=== PATIENT | female | born 1950 | race American Indian/Alaskan Native ===

== ENCOUNTER 2019-09-23 21:05 | Emergency (ER) | payer MEDICARE, OTHER ==
[2019-09-23] MEDS ORDERED: ASPIRIN 325 MG TAB PO ONE (21:26)
--- NOTE | 2019-09-23 21:27 | Event Note ---
ED Screening Note Date of service: 09/23/19 Time: 21:22 ED Screening Note: This is a 69 y.o. F. that presents to the ER with laceration to left parietal scalp and chest pain. Patient states she fell off her bed and hit her head on the night stand. PMH DM2, HLD, and HLD. Fall unwitnessed. This initial assessment/diagnostic orders/clinical plan/treatment(s) is/are subject to change based on patients health status, clinical progression and re- assessment by fellow clinical providers in the ED. Further treatment and workup at subsequent clinical providers discretion. Patient/guardian urged not to elope from the ED as their condition may be serious if not clinically assessed and managed. Initial orders include: Labs EKG CXR CT of head
[2019-09-23 21:41] LABS: Hematocrit 41.2 % (30.3-42.9); Hemoglobin 13.6 gm/dl (10.1-14.3); Mean Corpuscular HGB Conc 33 % (30-34); Mean Corpuscular Volume 85 fl (79-97); Platelet Count 241 K/mm3 (140-440); Red Blood Count 4.88 M/mm3 (3.65-5.03); Red Cell Distribution Width 13.3 % (13.2-15.2)
--- NOTE | 2019-09-23 21:56 | XRay Report ---
CHEST 1 VIEW 09/23/2019 9:39 PM INDICATION / CLINICAL INFORMATION: Chest Pain. COMPARISON: Chest x-ray 03/04/2019 FINDINGS: SUPPORT DEVICES: None. HEART / MEDIASTINUM: No significant abnormality. LUNGS / PLEURA: No significant pulmonary or pleural abnormality. No pneumothorax. ADDITIONAL FINDINGS: No significant additional findings. IMPRESSION: 1. No acute findings. Signer Name: Juliocesar Booth MD Signed: 09/23/2019 9:51 PM Workstation Name: [id number]
[2019-09-23 22:03] LABS: BUN/Creatinine Ratio 23; Blood Urea Nitrogen 18 mg/dL (7-17); Calcium 9.7 mg/dL (8.4-10.2); Hemolysis Index 7
--- NOTE | 2019-09-23 22:38 | Cat Scan Report ---
CT HEAD WITHOUT CONTRAST INDICATION: laceration to scalp, fall TECHNIQUE: Axial slices were obtained through the head. Coronal and sagittal reformatted images were obtained. COMPARISON: None available. FINDINGS: There is no intracranial hemorrhage or extra-axial fluid collection. Ventricles, basilar cisterns, an d sulci appear within normal limits for age. There is no mass lesion or midline shift. No acute ernesto torial infarct is identified. Bone windows demonstrate no acute osseous abnormality. Paranasal sinuses and mastoid air cells appear clear. Left posterior scalp hematoma is noted. TECHNIQUE: All CT scans at this facility use dose modulation, iterative reconstruction, automated ex posure control, weight based dosing, when appropriate, to reduce radiation dose to as low as reasonab ly achievable. IMPRESSION: 1. No acute intracranial abnormality. Signer Name: Hernan Schaffer MD Signed: 09/23/2019 10:34 PM Workstation Name: [id number]
[2019-09-23 22:54] LABS: Total Cells Counted 100
[2019-09-23 22:55] LABS: Basophils % (Manual) 0 % (0.0-1.8); Platelet Estimate Consistent w Auto; RBC Morphology Normal
[2019-09-23] MEDS ORDERED: TETANUS,DIPH,PERTUSS(ACELL) VACCINE 0.5 ML SYRINGE IM ONE (22:56)
--- NOTE | 2019-09-23 22:59 | Emergency Department Report ---
HPI - General Chief Complaint: Chest Pain Time Seen by Provider: 09/23/19 21:22 - HPI HPI: 69-year-old -[place] female presents to the emergency department with complaint of hitting her head and a possible head laceration that occurred when she fell out of bed accidentally just prior to presentation. She says that her that is very high and she lost her balance and thinks that she hit her head on a side table. Unknown loss of consciousness but if she did lose consciousness she says it was for "about 1 second if at all." Patient and her say that there was a large amount of bleeding from her head but that has since stopped with holding pressure. She currently has some mild head pain. She denies any vision change, slurred speech or any neurological deficits. The patient currently denies any chest pain but apparently had some when she arrived to triage. She says "I think it was due to the stress and excitement of the fall." She did not take anything for her symptoms prior to presentation. She has a past medical history of diabetes, hypertension, high cholesterol and previous cardiac ablation for SVT. Her primary care physician is max Solano and her collection analyst is Dr. Hughes. ED Past Medical Hx - Past Medical History Previous Medical History?: Yes Hx Hypertension: Yes Hx Diabetes: Yes Hx Asthma: No Additional medical history: High Cholesterol - Surgical History Past Surgical History?: Yes Additional Surgical History: Cardiac Ablation - Social History Smoking Status: Never Smoker Substance Use Type: None - Medications Home Medications: Home Medications Medication Instructions Recorded Confirmed Last Taken Type Cholecalciferol Vit D3 [Vitamin D3 1,000 unit PO QDAY 03/04/18 03/04/18 Unknown History 1,000 UNIT TAB] Cyanocobalamin [Vitamin B-12] 1,000 mcg PO DAILY 03/04/18 03/04/18 Unknown History dilTIAZem CD [Cardizem CD] 120 mg PO QDAY #30 capsule 03/05/18 Unknown Rx metFORMIN [Glucophage] 500 mg PO BID #60 tablet 03/05/18 Unknown Rx ED Review of Systems ROS: Stated complaint: FALL INJURY TO HEAD CHEST PAIN Other details as noted in HPI Comment: All other systems reviewed and negative Constitutional: denies: chills, fever Eyes: denies: eye pain, vision change ENT: denies: ear pain, throat pain Respiratory: denies: cough, shortness of breath Cardiovascular: chest pain. denies: palpitations Gastrointestinal: denies: abdominal pain, vomiting Genitourinary: denies: dysuria, discharge Musculoskeletal: denies: back pain, arthralgia Skin: other (scalp laceration). denies: rash Neurological: headache. denies: weakness Physical Exam - Physical Exam Vital Signs: Vital Signs 09/23/19 21:20 Temperature 98.1 F Pulse Rate 119 H Respiratory 18 Rate Blood Pressure 192/92 O2 Sat by Pulse 99 Oximetry Physical Exam: GENERAL: The patient is well-developed well-nourished. HEENT: Normocephalic. Patient has moist mucous membranes. EYES: Extraocular motions are intact. Pupils equal and reactive to light bilaterally. NECK: Supple. Trachea is midline. CHEST/LUNGS: Clear to auscultation. There is no respiratory distress noted. HEART/CARDIOVASCULAR: Regular. There is no tachycardia. There is no murmur. ABDOMEN: Abdomen is soft, nontender. Patient has normal bowel sounds. There is no abdominal distention. SKIN:Skin is warm and dry. There is a 1 cm linear superficial laceration to the superior posterior scalp. No current bleeding. NEURO: The patient is awake, alert, and oriented. The patient is cooperative. The patient has no focal neurologic deficits. Normal speech. Cranial nerves II through XII grossly intact. No facial asymmetry. MUSCULOSKELETAL: There is no tenderness or deformity. There is no evidence of acute injury. ED Course Vital Signs 09/23/19 21:20 Temperature 98.1 F Pulse Rate 119 H Respiratory 18 Rate Blood Pressure 192/92 O2 Sat by Pulse 99 Oximetry - Laceration /Wound Repair Head Wound Location: head (left posterior scalp) Wound Length (cm): 1 Wound's Depth, Shape: superficial, linear Wound Explored: no foreign body removed Number of Sutures: 2 (mariela) Layer Closure?: No ED Medical Decision Making - Lab Data Result diagrams: 09/23/19 21:32 09/23/19 21:32 - EKG Data -: EKG Interpreted by Sc EKG shows normal: sinus rhythm, axis, intervals, QRS complexes, ST-T waves Rate: tachycardia (116 bpm) - EKG Data When compared to previous EKG there are: no significant change Interpretation: unchanged when compared t (03/04/18) - Radiology Data Radiology results: report reviewed, image reviewed interpreted by me: Chest x-ray does not show any pleural effusions, pneumonia, pneumothorax, focal consolidation, or any other acute process. CT HEAD WITHOUT CONTRAST INDICATION: laceration to scalp, fall TECHNIQUE: Axial slices were obtained through the head. Coronal and sagittal reformatted images were obtained. COMPARISON: None available. FINDINGS: There is no intracranial hemorrhage or extra-axial fluid collection. Ventricles, basilar cisterns, and sulci appear within normal limits for age. There is no mass lesion or midline shift. No acute territorial infarct is identified. Bone windows demonstrate no acute osseous abnormality. Paranasal sinuses and mastoid air cells appear clear. Left posterior scalp hematoma is noted. TECHNIQUE: All CT scans at this facility use dose modulation, iterative reconstruction, automated exposure control, weight based dosing, when appropriate, to reduce radiation dose to as low as reasonably achievable. IMPRESSION: 1. No acute intracranial abnormality. - Medical Decision Making This patient presents to the emergency department after falling out of bed and hitting her head on a nightstand. This caused a 1 cm laceration to the superior posterior scalp. A CT scan of the head was done that does not show any bleed, shift, mass, ischemia, skull fracture, or any other acute process. The laceration was closed with 2 mariela. The patient had also complained, per triage, of having some chest pain when this initially happened. However the chest pain resolved while in the emergency department and she has no complaints of any chest pain at the time of my examination. An EKG was done that did not show any ST elevation ME or dysrhythmia. Her labs were unremarkable according CBC, metabolic panel and troponin. Chest x-ray did not show any pleural effusions, pneumonia, focal consolidation, pneumothorax, or any other acute process. The patient is feeling improved and appears safe for discharge home at this time. She has good follow-up with both primary care and cardiology. She understands the mariela will need to be removed in about 7 days. She was seen ambulatory in the emergency department and both appears and feels stable. She will return to the ER with any worsening of her symptoms or any acute distress. - Differential Diagnosis skull fracture, brain bleed, scalp laceration, concussion, costochondritis, Critical Care Time: No Critical care attestation.: If time is entered above; I have spent that time in minutes in the direct care of this critically ill patient, excluding procedure time. ED Disposition Clinical Impression: Fall Qualifiers: Encounter type: initial encounter Qualified Code(s): W19.XXXA - Unspecified fall, initial encounter Scalp laceration Qualifiers: Encounter type: initial encounter Qualified Code(s): S01.01XA - Laceration without foreign body of scalp, initial encounter Chest pain Qualifiers: Chest pain type: unspecified Qualified Code(s): R07.9 - Chest pain, unspecified Disposition: TO HOME OR SELFCARE Is pt being admited?: No Condition: Stable Instructions: Chest Pain (ED), Laceration (ED), Minor Head Injury (ED), Staple Care (ED), Fall Prevention (ED) Additional Instructions: Please follow up with your primary care physician and collection analyst in the next few days. Return to the emergency department immediately with any return of your chest pain, or with any signs/symptoms of infection including development of fever, increased swelling, surrounding redness, discharge of pus, or return with any acute distress. The mariela will need to be removed in about 7 days and can be done so at your primary care physician's office, any urgent care, or back in the emergency department. Referrals: LAUREN GODFREY MD [Primary Care Provider] - 2-3 Days DAYO HUGHES MD [Staff Physician] - 2-3 Days Time of Disposition: 23:38
[2019-09-23] MEDS ORDERED: HYDROcodone/ACETAMINOPHEN 5-325 MG TAB PO ONE (23:31)
[2019-09-24 00:20] VITALS: BP 123/69
== END 2019-09-23 23:55 | disposition home or self-care (01) ==
LOC: ED 21:05
DX: S01.01XA Laceration without foreign body of scalp, initial encounter (principal); R07.89 Other chest pain; I10 Essential (primary) hypertension; E11.9 Type 2 diabetes mellitus without complications; E78.00 Pure hypercholesterolemia, unspecified; Z79.899 Other long term (current) drug therapy; W18.39XA Other fall on same level, initial encounter; Y93.89 Activity, other specified; Y92.89 Other specified places as the place of occurrence of the external cause; Y99.8 Other external cause status
CPT/HCPCS: 36415; 70450; 71045; 80048; 84484; 85007; 85025; 90471; 90715; 93005; 93010

== ENCOUNTER 2020-12-27 22:58 | Observation (INO) | payer MEDICARE, OTHER ==
[2020-12-28] MEDS ORDERED: ASPIRIN 325 MG TAB PO ONE (00:41)
--- NOTE | 2020-12-28 00:43 | Emergency Department Report ---
ED Chest Pain HPI - General Chief Complaint: Headache Stated Complaint: CHEST PAIN/HIGH BLOOD PRESSURE PUI?: No Time Seen by Provider: 12/28/20 00:39 Source: patient Mode of arrival: Ambulatory Limitations: No Limitations - History of Present Illness Initial Comments: Patient is a 70-year-old female evidence emergency room with complaints of chest pain, high blood pressure and headache. Patient states her symptoms started 5 d ays ago. Patient states the symptoms are unchanged. Patient states that the headache is a tingling sensation and is generalized. Patient denies pain over the temporal region. Patient states she feels like she has extra pressure in her head from her blood pressure. Patient states she is having bilateral chest pressure. Patient states the chest pressure is a 3 out of 10. Patient states the headache is a 5 out of 10. Patient states the chest pressure and headache are better with rest and worse with exertion. Patient denies recent travel. Patient denies recent international travel. Pat ient denies exposure to the novel coronavirus. Patient denies sick contacts. Patient denies fever and chills. Patient denies cough. Patient denies diarrhea. Patient denies coming in contact with anybody with symptoms of the novel coronavirus. MD Complaint: chest pain -: Sudden Onset: during rest Pain Location: substernal, left chest, right chest Pain Radiation: none Severity scale (0 -10): 3 Quality: pressure Consistency: constant Improves With: rest Worsens With: exertion, movement re: denies: nausea, vomting, diaphoresis, dyspnea, sense of impending doom Other Symptoms: denies: cough, fever, syncope, rash, acid taste in mouth, leg swelling, palpitations, burping Treatments Prior to Arrival: none Aspirin use within the Past 7 Days: (1) Yes - Related Data On Oral Contraceptives: No Home Medications Medication Instructions Recorded Confirmed Last Taken Cholecalciferol Vit D3 [Vitamin D3 1,000 unit PO QDAY 03/04/18 03/04/18 Unknown 1,000 UNIT TAB] Cyanocobalamin [Vitamin B-12] 1,000 mcg PO DAILY 03/04/18 03/04/18 Unknown Previous Rx's Medication Instructions Recorded Last Taken Type dilTIAZem CD [Cardizem CD] 120 mg PO QDAY #30 capsule 03/05/18 Unknown Rx metFORMIN [Glucophage] 500 mg PO BID #60 tablet 03/05/18 Unknown Rx Allergies Allergy/AdvReac Type Severity Reaction Status Date / Time No Known Allergies Allergy Unverified 03/31/15 16:57 Heart Score - HEART Score History: Moderately suspicious EKG: Non-specific Age: > 65 Risk factors: > 3 risk factors or hx of atherosclerotic disease Troponin: < normal limit HEART Score: 6 - EKG Read Time Time EKG Completed: 04:26 EKG Read Time: 04:27 ED Review of Systems ROS: Stated complaint: CHEST PAIN/HIGH BLOOD PRESSURE Other details as noted in HPI Constitutional: denies: chills, fever Eyes: denies: eye pain, eye discharge, vision change ENT: denies: ear pain, throat pain Respiratory: denies: cough, shortness of breath, wheezing Cardiovascular: as per HPI, chest pain. denies: palpitations Endocrine: no symptoms reported Gastrointestinal: denies: abdominal pain, nausea, diarrhea Genitourinary: denies: urgency, dysuria, discharge Musculoskeletal: denies: back pain, joint swelling, arthralgia Skin: denies: rash, lesions Neurological: headache. denies: weakness, paresthesias Psychiatric: denies: anxiety, depression Hematological/Lymphatic: denies: easy bleeding, easy bruising ED Past Medical Hx - Past Medical History Previous Medical History?: Yes Hx Hypertension: Yes Hx Diabetes: Yes Hx Asthma: No Additional medical history: High Cholesterol - Surgical History Past Surgical History?: Yes Additional Surgical History: Cardiac Ablation - Social History Smoking Status: Never Smoker Substance Use Type: None - Medications Home Medications: Home Medications Medication Instructions Recorded Confirmed Last Taken Type Cholecalciferol Vit D3 [Vitamin D3 1,000 unit PO QDAY 03/04/18 03/04/18 Unknown History 1,000 UNIT TAB] Cyanocobalamin [Vitamin B-12] 1,000 mcg PO DAILY 03/04/18 03/04/18 Unknown History dilTIAZem CD [Cardizem CD] 120 mg PO QDAY #30 capsule 03/05/18 Unknown Rx metFORMIN [Glucophage] 500 mg PO BID #60 tablet 03/05/18 Unknown Rx ED Physical Exam - General Limitations: No Limitations General appearance: alert, in no apparent distress - Head Head exam: Present: atraumatic, normocephalic - Eye Eye exam: Present: normal appearance - ENT ENT exam: Present: mucous membranes moist - Neck Neck exam: Present: normal inspection - Respiratory Respiratory exam: Present: normal lung sounds bilaterally. Absent: respiratory distress, chest wall tenderness - Cardiovascular Cardiovascular Exam: Present: regular rate, normal rhythm. Absent: systolic murmur, diastolic murmur, rubs, gallop - GI/Abdominal GI/Abdominal exam: Present: soft, normal bowel sounds - Extremities Exam Extremities exam: Present: normal inspection - Back Exam Back exam: Present: normal inspection - Neurological Exam Neurological exam: Present: alert, oriented X3 - Psychiatric Psychiatric exam: Present: normal affect, normal mood - Skin Skin exam: Present: warm, dry, intact, normal color. Absent: rash ED Course Vital Signs 12/27/20 12/28/20 12/28/20 23:18 00:53 00:54 Temperature 97.9 F Pulse Rate 124 H 86 82 Respiratory 18 12 16 Rate Blood Pressure 153/95 122/66 O2 Sat by Pulse 96 98 98 Oximetry 12/28/20 12/28/20 12/28/20 00:55 00:57 00:59 Temperature Pulse Rate 82 87 76 Respiratory 15 13 13 Rate Blood Pressure 122/66 122/66 122/66 O2 Sat by Pulse 98 98 98 Oximetry 12/28/20 12/28/20 12/28/20 01:01 01:03 01:05 Temperature Pulse Rate 86 87 86 Respiratory 13 17 18 Rate Blood Pressure 122/66 122/66 122/66 O2 Sat by Pulse 98 97 98 Oximetry 12/28/20 12/28/20 12/28/20 01:07 01:09 01:11 Temperature Pulse Rate 86 84 84 Respiratory 14 18 12 Rate Blood Pressure 122/66 122/66 122/66 O2 Sat by Pulse 97 97 97 Oximetry 12/28/20 12/28/20 12/28/20 01:13 01:15 01:17 Temperature Pulse Rate 87 87 86 Respiratory 16 11 L 16 Rate Blood Pressure 122/66 122/66 122/66 O2 Sat by Pulse 96 96 96 Oximetry 12/28/20 12/28/20 12/28/20 01:19 01:21 01:23 Temperature Pulse Rate 82 80 81 Respiratory 11 L 12 11 L Rate Blood Pressure 122/66 122/66 122/66 O2 Sat by Pulse 97 97 97 Oximetry 12/28/20 12/28/20 12/28/20 01:24 01:25 01:27 Temperature Pulse Rate 79 81 80 Respiratory 16 13 12 Rate Blood Pressure 126/66 126/66 126/66 O2 Sat by Pulse 96 96 96 Oximetry 12/28/20 12/28/20 12/28/20 01:29 01:31 01:33 Temperature Pulse Rate 86 76 82 Respiratory 13 10 L 15 Rate Blood Pressure 126/66 126/66 126/66 O2 Sat by Pulse 96 96 97 Oximetry 12/28/20 12/28/20 12/28/20 01:35 01:37 01:39 Temperature Pulse Rate 82 81 81 Respiratory 12 11 L 14 Rate Blood Pressure 126/66 126/66 126/66 O2 Sat by Pulse 97 96 95 Oximetry 12/28/20 12/28/20 12/28/20 01:41 01:43 01:45 Temperature Pulse Rate 77 76 80 Respiratory 13 19 15 Rate Blood Pressure 126/66 126/66 126/66 O2 Sat by Pulse 96 96 96 Oximetry 12/28/20 12/28/20 12/28/20 01:47 01:49 01:51 Temperature Pulse Rate 84 80 80 Respiratory 17 12 14 Rate Blood Pressure 126/66 126/66 126/66 O2 Sat by Pulse 96 95 96 Oximetry 12/28/20 12/28/20 12/28/20 02:09 02:11 02:13 Temperature Pulse Rate 79 80 77 Respiratory 12 14 18 Rate Blood Pressure O2 Sat by Pulse 97 96 95 Oximetry 12/28/20 12/28/20 12/28/20 02:15 02:17 02:19 Temperature Pulse Rate 81 79 77 Respiratory 17 12 13 Rate Blood Pressure O2 Sat by Pulse 96 96 95 Oximetry 12/28/20 12/28/20 12/28/20 02:21 02:23 02:25 Temperature Pulse Rate 81 80 78 Respiratory 11 L 20 15 Rate Blood Pressure O2 Sat by Pulse 96 96 96 Oximetry 12/28/20 12/28/20 12/28/20 02:27 02:29 02:31 Temperature Pulse Rate 80 84 80 Respiratory 17 20 12 Rate Blood Pressure O2 Sat by Pulse 96 95 96 Oximetry 12/28/20 12/28/20 12/28/20 02:33 02:35 02:37 Temperature Pulse Rate 84 75 77 Respiratory 17 14 11 L Rate Blood Pressure O2 Sat by Pulse 95 95 95 Oximetry 12/28/20 12/28/20 12/28/20 02:39 02:41 02:43 Temperature Pulse Rate 79 81 81 Respiratory 20 14 19 Rate Blood Pressure O2 Sat by Pulse 95 95 94 Oximetry 12/28/20 12/28/20 12/28/20 02:45 02:47 02:49 Temperature Pulse Rate 77 78 75 Respiratory 14 18 17 Rate Blood Pressure O2 Sat by Pulse 96 96 97 Oximetry 12/28/20 12/28/20 12/28/20 02:51 02:53 02:55 Temperature Pulse Rate 79 76 74 Respiratory 14 15 15 Rate Blood Pressure O2 Sat by Pulse 97 95 97 Oximetry 12/28/20 12/28/20 12/28/20 02:57 02:59 03:01 Temperature Pulse Rate 75 73 77 Respiratory 12 17 18 Rate Blood Pressure 106/55 106/55 116/69 O2 Sat by Pulse 94 95 97 Oximetry 12/28/20 12/28/20 12/28/20 03:03 03:05 03:06 Temperature Pulse Rate 72 87 77 Respiratory 14 14 14 Rate Blood Pressure 116/69 116/69 120/63 O2 Sat by Pulse 96 98 95 Oximetry 12/28/20 12/28/20 12/28/20 03:07 03:09 03:11 Temperature Pulse Rate 76 76 75 Respiratory 14 14 15 Rate Blood Pressure 120/63 120/63 112/64 O2 Sat by Pulse 94 94 94 Oximetry 12/28/20 12/28/20 12/28/20 03:13 03:15 03:17 Temperature Pulse Rate 76 75 77 Respiratory 20 13 16 Rate Blood Pressure 112/64 112/64 94/48 O2 Sat by Pulse 96 95 94 Oximetry 12/28/20 12/28/20 12/28/20 03:19 03:20 03:21 Temperature Pulse Rate 78 70 74 Respiratory 10 L 10 L 19 Rate Blood Pressure 94/48 109/62 109/62 O2 Sat by Pulse 95 97 96 Oximetry 12/28/20 12/28/20 12/28/20 03:23 03:25 03:27 Temperature Pulse Rate 79 77 77 Respiratory 16 15 14 Rate Blood Pressure 109/62 109/62 109/62 O2 Sat by Pulse 95 93 96 Oximetry 12/28/20 12/28/20 12/28/20 03:29 03:31 03:33 Temperature Pulse Rate 81 78 74 Respiratory 16 17 13 Rate Blood Pressure 109/62 109/62 109/62 O2 Sat by Pulse 96 99 97 Oximetry 12/28/20 12/28/20 12/28/20 03:35 03:37 03:39 Temperature Pulse Rate 76 77 80 Respiratory 16 8 L 10 L Rate Blood Pressure 109/62 109/62 109/62 O2 Sat by Pulse 95 96 96 Oximetry 12/28/20 12/28/20 12/28/20 03:41 03:43 03:45 Temperature Pulse Rate 102 H 98 H 90 Respiratory 16 16 22 Rate Blood Pressure 109/62 109/62 109/62 O2 Sat by Pulse 97 97 98 Oximetry 12/28/20 12/28/20 12/28/20 03:47 03:49 03:50 Temperature Pulse Rate 78 76 94 H Respiratory 14 17 17 Rate Blood Pressure 109/62 109/62 124/55 O2 Sat by Pulse 98 97 96 Oximetry 12/28/20 12/28/20 12/28/20 03:51 03:53 03:55 Temperature Pulse Rate 95 H 78 79 Respiratory 14 13 16 Rate Blood Pressure 124/55 124/55 124/55 O2 Sat by Pulse 97 97 98 Oximetry 12/28/20 12/28/20 12/28/20 03:57 03:59 04:01 Temperature Pulse Rate 95 H 95 H 92 H Respiratory 15 20 15 Rate Blood Pressure 124/55 124/55 124/55 O2 Sat by Pulse 98 98 97 Oximetry 12/28/20 12/28/20 12/28/20 04:03 04:05 04:07 Temperature Pulse Rate 90 92 H 81 Respiratory 13 12 17 Rate Blood Pressure 124/55 124/55 124/55 O2 Sat by Pulse 98 98 97 Oximetry 12/28/20 12/28/20 12/28/20 04:09 04:11 04:13 Temperature Pulse Rate 80 78 76 Respiratory 17 14 12 Rate Blood Pressure 124/55 124/55 124/55 O2 Sat by Pulse 97 98 97 Oximetry 12/28/20 12/28/20 12/28/20 04:15 04:16 04:23 Temperature Pulse Rate 79 78 68 Respiratory 10 L 13 11 L Rate Blood Pressure 124/55 124/55 124/55 O2 Sat by Pulse 97 98 Oximetry 12/28/20 12/28/20 12/28/20 04:25 04:27 04:29 Temperature Pulse Rate 73 72 77 Respiratory 13 16 14 Rate Blood Pressure 124/55 124/55 124/55 O2 Sat by Pulse 99 99 99 Oximetry 12/28/20 12/28/20 12/28/20 04:31 04:33 04:35 Temperature Pulse Rate 70 77 74 Respiratory 12 11 L 19 Rate Blood Pressure 124/55 124/55 124/55 O2 Sat by Pulse 98 98 97 Oximetry 12/28/20 12/28/20 12/28/20 04:37 04:39 04:41 Temperature Pulse Rate 74 77 76 Respiratory 14 16 17 Rate Blood Pressure 124/55 124/55 124/55 O2 Sat by Pulse 98 98 97 Oximetry 12/28/20 12/28/20 12/28/20 04:43 04:45 04:47 Temperature Pulse Rate 73 72 71 Respiratory 12 12 14 Rate Blood Pressure 124/55 124/55 124/55 O2 Sat by Pulse 97 96 97 Oximetry 12/28/20 12/28/20 12/28/20 04:49 04:50 04:51 Temperature Pulse Rate 70 78 75 Respiratory 14 13 12 Rate Blood Pressure 124/55 106/68 106/68 O2 Sat by Pulse 97 99 97 Oximetry 12/28/20 12/28/20 12/28/20 04:53 04:55 04:57 Temperature Pulse Rate 74 75 71 Respiratory 13 15 14 Rate Blood Pressure 106/68 106/68 106/68 O2 Sat by Pulse 97 96 95 Oximetry 12/28/20 12/28/20 12/28/20 04:59 05:01 05:03 Temperature Pulse Rate 69 71 70 Respiratory 19 13 10 L Rate Blood Pressure 106/68 106/68 106/68 O2 Sat by Pulse 96 96 97 Oximetry 12/28/20 12/28/20 12/28/20 05:05 05:07 05:09 Temperature Pulse Rate 69 72 74 Respiratory 16 19 18 Rate Blood Pressure 106/68 106/68 106/68 O2 Sat by Pulse 96 95 97 Oximetry 12/28/20 12/28/20 12/28/20 05:11 05:13 05:15 Temperature Pulse Rate 70 70 74 Respiratory 13 13 16 Rate Blood Pressure 106/68 106/68 106/68 O2 Sat by Pulse 95 96 96 Oximetry 12/28/20 12/28/20 12/28/20 05:17 05:19 05:20 Temperature Pulse Rate 68 73 70 Respiratory 17 17 18 Rate Blood Pressure 106/68 106/68 109/62 O2 Sat by Pulse 96 95 95 Oximetry 12/28/20 05:21 Temperature Pulse Rate 66 Respiratory 18 Rate Blood Pressure 109/62 O2 Sat by Pulse 96 Oximetry - Reevaluation(s) Reevaluation #1: I discussed all results with patient. I discussed plan of care with patient. Patient agrees with plan of care and admission. Patient to be admitted to the hospitalist service. 12/28/20 04:01 - Consultations Consultation #1: Hospitalist consulted for admission. Hospitalist to admit patient. 12/28/20 03:42 YAZMIN score - Yazmin Score Age > 65: (1) Yes Aspirin use within the Past 7 Days: (0) No 3 or more CAD Risk Factors: (0) No 2 or more Angina events in past 24 hrs: (0) No Known CAD with more than 50% Stenosis: (0) No Elevated Cardiac Markers: (0) No ST Deviation Greater than 0.5mm: (0) No YAZMIN Score: 1 ED Medical Decision Making - Lab Data Result diagrams: 12/28/20 04:21 12/28/20 04:21 - EKG Data -: EKG Interpreted by Me EKG shows normal: sinus rhythm, axis, intervals, QRS complexes, ST-T waves Rate: normal - Radiology Data Radiology results: report reviewed, image reviewed interpreted by me: Chest x-ray: No pneumonia, no pneumothorax, no foreign body, no osseous findings, no acute findings CT HEAD WITHOUT CONTRAST INDICATION / CLINICAL INFORMATION: Patient complains of headache and dizziness. TECHNIQUE: All CT scans at this location are performed using CT dose reduction for ALARA by means of automated exposure control. COMPARISON: 09/23/19. FINDINGS: HEMORRHAGE: None. EXTRA-AXIAL SPACES: Normal in size and morphology for the patient's age. VENTRICULAR SYSTEM: Normal in size and morphology for the patient's age. CEREBRAL PARENCHYMA: No significant abnormality. No acute territorial infarct. MIDLINE SHIFT / HERNIATION: None. CEREBELLUM / BRAINSTEM: No significant abnormality. ORBITS: Normal as visualized. SOFT TISSUES: No significant abnormality. SKULL: No significant abnormality. PARANASAL SINUSES / MASTOID AIR CELLS: Normal as visualized. ADDITIONAL FINDINGS: None. IMPRESSION: No acute abnormality or significant change. CHEST 1 VIEW 12/28/2020 12:37 AM INDICATION / CLINICAL INFORMATION: Chest Pain. COMPARISON: 09/23/19. FINDINGS: SUPPORT DEVICES: None. HEART / MEDIASTINUM: The heart size and pulmonary vasculature are normal. The aorta is normal in caliber. LUNGS / PLEURA: No significant pulmonary or pleural abnormality. No pneumothorax. ADDITIONAL FINDINGS: No significant additional findings. IMPRESSION: No acute abnormality or significant change. - Medical Decision Making Patient is a 70-year-old female who presents emergency room with complaints of chest pain, headache and dizziness. Patient states she feels her blood pressure. Patient had labs done which were essentially unremarkable. Patient had a chest x-ray done which was negative for acute findings. Patient had an EKG done which was negative for acute findings and normal ST. I personally reviewed the EKG and the chest x-ray. Patient also complained of dizziness and had a head CT done. Patient head CT was negative for acute findings. Patient admitted to the hospital service for further evaluation treatment and rule out ACS. Critical care time documented due to the multiple reassessments, prolonged time at the bedside, interpretation of diagnostics and labs. - Differential Diagnosis ACS, chest pain, headache, hypertension, CHF Critical Care Time: Yes Critical care time in (mins) excluding proc time.: 35 Critical care attestation.: If time is entered above; I have spent that time in minutes in the direct care of this critically ill patient, excluding procedure time. Critical Care Time: 35 minutes ED Disposition Clinical Impression: Dizziness Chest pain Qualifiers: Chest pain type: unspecified Qualified Code(s): R07.9 - Chest pain, unspecified Headache Qualifiers: Headache type: unspecified Headache chronicity pattern: acute headache Intractability: not intractable Qualified Code(s): R51.9 - Headache, unspecified Disposition: DC-09 OP ADMIT IP TO THIS HOSP Is pt being admited?: Yes Does the pt Need Aspirin: No Condition: Critical Time of Disposition: 04:35
--- NOTE | 2020-12-28 01:00 | XRay Report ---
CHEST 1 VIEW 12/28/2020 12:37 AM INDICATION / CLINICAL INFORMATION: Chest Pain. COMPARISON: 09/23/19. FINDINGS: SUPPORT DEVICES: None. HEART / MEDIASTINUM: The heart size and pulmonary vasculature are normal. The aorta is normal in ryan jaquan. LUNGS / PLEURA: No significant pulmonary or pleural abnormality. No pneumothorax. ADDITIONAL FINDINGS: No significant additional findings. IMPRESSION: No acute abnormality or significant change. Signer Name: Juan Evangelista MD Signed: 12/28/2020 12:56 AM Workstation Name: [id number]
[2020-12-28 01:10] LABS: Basophils # (Auto) 0.1 K/mm3 (0.0-0.1); Basophils % (Auto) 0.8 % (0.0-1.8); Eosinophils # (Auto) 0.1 K/mm3 (0.0-0.4); Eosinophils % (Auto) 0.7 % (0.0-4.3); Hematocrit 47.1 % (30.3-42.9); Hemoglobin 15.1 gm/dl (10.1-14.3); Mean Corpuscular HGB Conc 32 % (30-34); Mean Corpuscular Volume 84 fl (79-97); Monocytes # (Auto) 0.8 K/mm3 (0.0-0.8); Monocytes % (Auto) 6.3 % (0.0-7.3); Platelet Count 262 K/mm3 (140-440); Red Blood Count 5.63 M/mm3 (3.65-5.03); Red Cell Distribution Width 13.3 % (13.2-15.2)
[2020-12-28 01:19] LABS: INR 1.01 (0.87-1.13)
[2020-12-28 01:20] LABS: Partial Thromboplastin Time 23.3 Sec. (24.2-36.6)
[2020-12-28 01:52] LABS: Alanine Aminotransferase 28 units/L (7-56); Albumin 4.5 g/dL (3.9-5); BUN/Creatinine Ratio 21; Blood Urea Nitrogen 17 mg/dL (7-17); Calcium 10.2 mg/dL (8.4-10.2); Hemolysis Index 5
--- NOTE | 2020-12-28 02:33 | Cat Scan Report ---
CT HEAD WITHOUT CONTRAST INDICATION / CLINICAL INFORMATION: Patient complains of headache and dizziness. TECHNIQUE: All CT scans at this location are performed using CT dose reduction for ALARA by means of automated exposure control. COMPARISON: 09/23/19. FINDINGS: HEMORRHAGE: None. EXTRA-AXIAL SPACES: Normal in size and morphology for the patient's age. VENTRICULAR SYSTEM: Normal in size and morphology for the patient's age. CEREBRAL PARENCHYMA: No significant abnormality. No acute territorial infarct. MIDLINE SHIFT / HERNIATION: None. CEREBELLUM / BRAINSTEM: No significant abnormality. ORBITS: Normal as visualized. SOFT TISSUES: No significant abnormality. SKULL: No significant abnormality. PARANASAL SINUSES / MASTOID AIR CELLS: Normal as visualized. ADDITIONAL FINDINGS: None. IMPRESSION: No acute abnormality or significant change. Signer Name: Juan Evangelista MD Signed: 12/28/2020 2:29 AM Workstation Name: [id number]
--- NOTE | 2020-12-28 03:51 | History and Physical Report ---
History of Present Illness Date of examination: 12/28/20 Date of admission: 12/28/20 Chief complaint: chest pain History of present illness: Patient is a 70-year-old female evidence emergency room with complaints of chest pain, high blood pressure and headache. Patient states her symptoms started 5 days ago. Patient states the symptoms are unchanged. Patient states that the headache is a tingling sensation and is generalized. Patient denies pain over the temporal region. Patient states she feels like she has extra pressure in her head from her blood pressure. Patient states she is having bilateral chest pressure. Patient states the chest pressure is a 3 out of 10. Patient states the headache is a 5 out of 10. Patient states the chest pressure and headache are better with rest and worse with exertion. ED work-up WBC 12.5 and 13.7, hemoglobin 15.1 and 14.8, platelets 262 and 268, sodium 138 potassium 4.6 creatinine 0.8, serum glucose 194 and 151, hemoglobin A1c 8.9, troponin less than 0.01, triglyceride 202, 228, LDL [address] of the head no acute finding. Chest x-ray no acute abnormality or significant change. Patient seen in the ED at bedside patient is alert and oriented x3. Patient is on room air O2 sats 98%. Patient denies tobacco, chronic alcohol use, and illicit drug use. Patient reported history of heart ablation due to tachycardia greater than 200. Reviewed labs values, medical record, and vital signs. Stress test and echocardiogram ordered to rule out ischemic heart disease. Hardening Machine Operator Helper consulted. Past History Past Medical History: diabetes, hyperlipidemia Past Surgical History: Other (heart ablation) Social history: lives with family Family history: diabetes Medications and Allergies Allergies Allergy/AdvReac Type Severity Reaction Status Date / Time No Known Allergies Allergy Unverified 03/31/15 16:57 Home Medications Medication Instructions Recorded Confirmed Last Taken Type Cholecalciferol Vit D3 [Vitamin D3 1,000 unit PO QDAY 03/04/18 03/04/18 Unknown History 1,000 UNIT TAB] Cyanocobalamin [Vitamin B-12] 1,000 mcg PO DAILY 03/04/18 03/04/18 Unknown History dilTIAZem CD [Cardizem CD] 120 mg PO QDAY #30 capsule 03/05/18 Unknown Rx metFORMIN [Glucophage] 500 mg PO BID #60 tablet 03/05/18 Unknown Rx Review of Systems Ears, nose, mouth and throat: no epistaxis, no bleeding gums Breasts: no discharge Cardiovascular: chest pain Respiratory: no wheezing, no pleurisy Gastrointestinal: no melena Genitourinary Female: no dyspareunia, no dysmenorrhea Rectal: no hemorrhoids Musculoskeletal: no neck stiffness Integumentary: no growths Neurological: no head injury Psychiatric: no suicidal ideation, no disorientation, no hallucinations Endocrine: no cold intolerance Hematologic/Lymphatic: no easy bruising, no easy bleeding Allergic/Immunologic: no urticaria, no allergic rhinitis Exam - Constitutional Vitals: Temp Pulse Resp BP Pulse Ox 97.9 F 77 16 94/48 94 12/27/20 23:18 12/28/20 03:17 12/28/20 03:17 12/28/20 03:17 12/28/20 03:17 General appearance: Present: mild distress, well-nourished - EENT Eyes: Present: PERRL ENT: hearing intact, clear oral mucosa - Neck Neck: Present: supple, normal ROM - Respiratory Respiratory effort: normal Respiratory: bilateral: CTA - Cardiovascular Heart rate: 94 Heart Sounds: Present: S1 & S2. Absent: rub, click - Extremities Extremities: pulses symmetrical, No edema Peripheral Pulses: within normal limits - Abdominal General gastrointestinal: Present: soft, non-tender, non-distended, normal bowel sounds Female genitourinary: Present: normal - Integumentary Integumentary: Present: clear, warm, dry - Musculoskeletal Musculoskeletal: gait normal, strength equal bilaterally - Psychiatric Psychiatric: appropriate mood/affect, intact judgment & insight, cooperative - Neurologic Neurologic: CNII-XII intact, moves all extremities - Allied Health Allied health notes reviewed: nursing HEART Score - HEART Score EKG: Non-specific Age: > 65 Risk factors: > 3 risk factors or hx of atherosclerotic disease Troponin: Troponin T < 0.010 ng/mL (0.00-0.029) 12/28/20 00:56 Troponin: < normal limit Results - Labs CBC & Chem 7: 12/28/20 04:21 12/28/20 04:21 Labs: Abnormal lab results 12/28/20 12/28/20 12/28/20 Range/Units 00:56 00:56 00:56 WBC 12.5 H (4.5-11.0) K/mm3 RBC 5.63 H (3.65-5.03) M/mm3 Hgb 15.1 H (10.1-14.3) gm/dl Hct 47.1 H (30.3-42.9) % MCH 27 L (28-32) pg APTT 23.3 L (24.2-36.6) Sec. Glucose 194 H (65-100) mg/dL Assessment and Plan - Patient Problems (1) Chest pain Current Visit: Yes Status: Acute Qualifiers: Chest pain type: unspecified Qualified Code(s): R07.9 - Chest pain, unspecified Plan to address problem: Continue cardio-protective measures ASA, statin, nitro sublingual PRN ECHO and stress test Hardening Machine Operator Helper consult (2) Type 2 diabetes mellitus Current Visit: No Status: Chronic Qualifiers: Diabetes mellitus complication status: without complication Qualified Code(s): E11.9 - Type 2 diabetes mellitus without complications Plan to address problem: Monitor blood sugar with SSI Check HGA1C (3) Headache Current Visit: Yes Status: Acute Qualifiers: Headache type: unspecified Headache chronicity pattern: acute headache Intractability: not intractable Qualified Code(s): R51.9 - Headache, unspecified Plan to address problem: pain management CT of the head-no acute finding (4) GERD (gastroesophageal reflux disease) Current Visit: No Status: Acute Plan to address problem: Continue PPI (5) DVT prophylaxis Current Visit: No Status: Acute Plan to address problem: Subcutaneous Lovenox (6) Full code status Current Visit: Yes Status: Acute Plan to address problem: Patient is full code
[2020-12-28] MEDS ORDERED: ONDANSETRON 4 MG/2 ML INJ IV PRN (03:59)
[2020-12-28] MEDS ORDERED: MAGNESIUM HYDROXIDE (MOM) ORAL LIQD UDC PO PRN (03:59)
[2020-12-28] MEDS ORDERED: METOCLOPRAMIDE 10 MG/2 ML INJ IV PRN (03:59)
[2020-12-28] MEDS ORDERED: ACETAMINOPHEN 325 MG TAB PO PRN ×2 (03:59)
[2020-12-28] MEDS ORDERED: NITROGLYCERIN 0.4 MG TAB SUBL SL PRN (03:59)
[2020-12-28] MEDS ORDERED: traMADol 50 MG TAB PO PRN (03:59)
[2020-12-28] MEDS ORDERED: ALUM-MAG HYDROXIDE-SIMETHICONE 200-200-20MG/5ML ORAL LIQD 30 ML PO PRN (03:59)
[2020-12-28] MEDS ORDERED: traZODone 50 MG TAB PO PRN (04:08)
[2020-12-28 04:47] LABS: Hematocrit 45.3 % (30.3-42.9); Hemoglobin 14.8 gm/dl (10.1-14.3); Mean Corpuscular HGB Conc 33 % (30-34); Mean Corpuscular Volume 83 fl (79-97); Platelet Count 268 K/mm3 (140-440); Red Blood Count 5.45 M/mm3 (3.65-5.03); Red Cell Distribution Width 13.1 % (13.2-15.2)
[2020-12-28 05:27] LABS: Chol/HDL Ratio 5.84 %; HDL Cholesterol 39 mg/dL (40-59); LDL Cholesterol,Direct 169 mg/dL (50-130)
[2020-12-28 05:34] LABS: Total Cells Counted 100
[2020-12-28 05:35] LABS: Platelet Estimate Consistent w Auto; RBC Morphology Normal
[2020-12-28 05:36] LABS: BUN/Creatinine Ratio 20; Blood Urea Nitrogen 16 mg/dL (7-17); Calcium 9.7 mg/dL (8.4-10.2); Hemolysis Index 3
[2020-12-28] MEDS ORDERED: REGADENOSON 0.4 MG/5 ML INJ IV ONE (08:30)
--- NOTE | 2020-12-28 13:30 | Consultation ---
History of Present Illness Consult date: 12/28/20 Consult reason: chest pain History of present illness: The patient is a 70-year-old woman with a history of paroxysmal atrial fibrillation who underwent successful ablation therapy 3 years ago. Following that, she states that her medications including oral anticoagulation with discontinued and she has had no further A. fib recurrence. Otherwise, no other significant prior cardiac history. She is admitted to the hospital at this time for cardiac work-up, cardiac consultation was requested for chest pain. The patient however denies any chest pain, instead reports that she has had 3 days of intermittent dizziness and lightheadedness particularly on standing. These symptoms have also been associated with labile blood pressure which had elevated as high as 160 systolic on her home monitor. She had no palpitations, no syncope, no edema. On presentation to the hospital, her initial blood pressure was 153 systolic, but has remained normotensive since after her admission. Currently she is undergoing a Lexiscan thallium stress test ordered by the medical service. ECG was normal sinus rhythm with nonspecific ST and T wave changes, serial troponin levels were normal. Chest x-ray is normal size cardiac silhouette and clear lungs, normal chest x-ray. Past History Past Medical History: atrial fib, diabetes, hyperlipidemia Past Surgical History: Other (Atrial fibrillation ablation) Social history: lives with family Family history: diabetes Medications and Allergies Allergies Allergy/AdvReac Type Severity Reaction Status Date / Time No Known Allergies Allergy Unverified 03/31/15 16:57 Home Medications Medication Instructions Recorded Confirmed Last Taken Type Cholecalciferol Vit D3 [Vitamin D3 1,000 unit PO QDAY 03/04/18 03/04/18 Unknown History 1,000 UNIT TAB] Cyanocobalamin [Vitamin B-12] 1,000 mcg PO DAILY 03/04/18 03/04/18 Unknown History dilTIAZem CD [Cardizem CD] 120 mg PO QDAY #30 capsule 03/05/18 Unknown Rx metFORMIN [Glucophage] 500 mg PO BID #60 tablet 03/05/18 Unknown Rx Active Meds: Active Medications Acetaminophen (Acetaminophen 325 Mg Tab) 650 mg PO Q4H PRN PRN Reason: Pain MILD(1-3)/Fever >100.5/DORMAN Al Hydrox/Mg Hydrox/Simethicone (Alum-Mag Hydroxide-Simethicone [phone]/[phone] Oral Liqd 30 Ml) 30 ml PO Q4H PRN PRN Reason: Indigestion Aspirin (Aspirin 81 Mg Tab Chew) 81 mg PO QDAY [facility] Atorvastatin Calcium (Atorvastatin 40 Mg Tab) 40 mg PO QHS [facility] Cholecalciferol (Cholecalciferol (Vit D3) 1000 Unit (25 Mcg) Tab) 1,000 unit PO QDAY [facility] Cyanocobalamin (Cyanocobalamin (Vit B-12) 1000 Mcg Tab) 1,000 mcg PO DAILY [facility] Magnesium Hydroxide (Magnesium Hydroxide (Mom) Oral Liqd Udc) 30 ml PO Q4H PRN PRN Reason: Constipation Metformin HCl (Metformin 500 Mg Tab) 500 mg PO BIDDIAB MARIZA Metoclopramide HCl (Metoclopramide 10 Mg/2 Ml Inj) 10 mg IV Q6H PRN PRN Reason: Nausea And Vomiting Nitroglycerin (Nitroglycerin 0.4 Mg Tab Subl) 0.4 mg SL Q5M PRN PRN Reason: Chest Pain Ondansetron HCl (Ondansetron 4 Mg/2 Ml Inj) 4 mg IV Q8H PRN PRN Reason: Nausea And Vomiting Pantoprazole Sodium (Pantoprazole 40 Mg Tab) 40 mg PO QDAY [facility] Sodium Chloride (Sodium Chloride 0.9% 10 Ml Flush Syringe) 10 ml IV BID MARIZA Sodium Chloride (Sodium Chloride 0.9% 10 Ml Flush Syringe) 10 ml IV PRN PRN PRN Reason: LINE FLUSH Tramadol HCl (Tramadol 50 Mg Tab) 50 mg PO Q6H PRN PRN Reason: Pain, Moderate (4-6) Trazodone HCl (Trazodone 50 Mg Tab) 50 mg PO QHS PRN PRN Reason: Insomnia Review of Systems Cardiovascular: lightheadedness, shortness of breath, no chest pain, no orthopnea, no palpitations, no rapid/irregular heart beat, no edema, no syncope Physical Examination Vital Signs Temp Pulse Resp BP Pulse Ox 97.9 F 124 H 18 153/95 96 12/27/20 23:18 12/27/20 23:18 12/27/20 23:18 12/27/20 23:18 12/27/20 23:18 General appearance: no acute distress HEENT: Positive: PERRL Neck: Positive: neck supple Cardiac: Positive: Reg Rate and Rhythm Lungs: Positive: clear to auscultation Neuro: Positive: Grossly Intact Abdomen: Positive: Soft Female genitourinary: deferred Skin: Positive: Clear Extremities: Absent: edema Results 12/28/20 04:21 12/28/20 04:21 Cardiac Enzymes 12/28/20 Range/Units 00:56 AST 25 (5-40) units/L Coagulation 12/28/20 Range/Units 00:56 PT 13.2 (12.2-14.9) Sec. INR 1.01 (0.87-1.13) APTT 23.3 L (24.2-36.6) Sec. Lipids 12/28/20 Range/Units 04:21 Triglycerides 202 H (2-149) mg/dL Cholesterol 228 H (50-199) mg/dL HDL Cholesterol 39 L (40-59) mg/dL Cholesterol/HDL Ratio 5.84 % CBC 12/28/20 12/28/20 Range/Units 00:56 04:21 WBC 12.5 H 13.7 H (4.5-11.0) K/mm3 RBC 5.63 H 5.45 H (3.65-5.03) M/mm3 Hgb 15.1 H 14.8 H (10.1-14.3) gm/dl Hct 47.1 H 45.3 H (30.3-42.9) % Plt Count 262 268 (140-440) K/mm3 Lymph # (Auto) 4.0 Credit Director (1.2-5.4) K/mm3 [place] # (Auto) 0.8 (0.0-0.8) K/mm3 Eos # (Auto) 0.1 (0.0-0.4) K/mm3 Baso # (Auto) 0.1 (0.0-0.1) K/mm3 Comprehensive Metabolic Panel 12/28/20 12/28/20 Range/Units 00:56 04:21 Sodium 138 143 (137-145) mmol/L Potassium 4.6 4.4 (3.6-5.0) mmol/L Chloride 101.7 105.0 (98-107) mmol/L Carbon Dioxide 24 22 (22-30) mmol/L BUN 17 16 (7-17) mg/dL Creatinine 0.8 0.8 (0.6-1.2) mg/dL Glucose 194 H 151 H (65-100) mg/dL Calcium 10.2 9.7 (8.4-10.2) mg/dL AST 25 (5-40) units/L ALT 28 (7-56) units/L Alkaline Phosphatase 73 (35-129) units/L Total Protein 7.4 (6.3-8.2) g/dL Albumin 4.5 (3.9-5) g/dL EKG interpretations - Telemetry EKG Rhythm: Sinus Rhythm Assessment and Plan - Patient Problems (1) Dizziness Current Visit: Yes Status: Acute Plan to address problem: Patient presented with lightheadedness and labile blood pressure. She has a history of paroxysmal atrial fibrillation, status post ablation 3 years ago. A Lexiscan thallium stress test was ordered and has been completed, results are pending. Further work-up of her intermittent dizziness in the setting of history of paroxysmal atrial fibrillation will be with a 30-day event monitor as an outpatient, to assess for any possible recurrent tachyarrhythmias.
--- NOTE | 2020-12-28 13:40 | Nuclear Medicine Report ---
APPROVED REPORT Exam: Nuclear Stress Test Patient Location: ED-[facility] DEPARTMENT Room #: ED-3 Ht: 5 ft 6 in Wt: 147 lbs BSA: 1.75 m2 HR: 69 bpm BP: 108/64 mmHg BMI: 23.72 Rhythm: NSR Stress Test Details Stress Test: Pharmacologic stress testing performed using 0.4 mg of regadenoson per 5 mL given IV over 10 seconds. Reason for pharmacologic stress test: physical limitation. HR Resting HR: 69 bpmMax Heart Rate (APMHR): 150 bpm Max HR Achieved: 109 bpmTarget HR (85% APMHR): 127 bpm % of APMHR: 72 Recovery HR: 94 bpm BP Resting BP: 108/64 mmHg Max BP: 127/56 mmHg Recovery BP: 112/62 mmHg ECG Resting ECG: Sinus Rhythm Stress ECG: Sinus Rhythm ST Change: None Arrhythmia: None Recovery ECG: Sinus Rhythm Recovery ST Change: None Recovery Arrhythmia: None Clinical Reason for Termination: Completed protocol Stress Symptoms: None Stress ECG Conclusion Lexiscan stress test was negative for ST segment deviation, thallium perfusion images are pending for final test interpretation. NM EXAM: Myocardial Perfusion REST/STRESS Imaging Protocol: Rest Tc-99m/Stress Tc-99m 1 day Resting Data Rest SPECT myocardial perfusion imaging was performed in supine position 45 minutes following the intravenous injection of 10 mCi of Tc-99m Myoview. Time of rest injection: 0645 Pharmacologic Stress Pharmacologic stress test was performed by injecting Regadenoson 0.4 mg IV push followed by the intravenous injection of 28 mCi of Tc-99m Myoview. Time of stress injection: 0947 Gated Stress SPECT was performed 30 minutes after stress injection. The images were gated to evaluate regional wall motion and calculate left ventricular ejection fraction. Study Quality Study: excellent Lung Uptake: Normal Study Data TID = 1.16. Perfusion Wall Motion The rest and stress images show normal left ventricular wall motion. Nuclear Conclusion ECG Findings: negative for ischemia Clinical Findings: negative for ischemia Nuclear Findings: negative for ischemia Risk Study: low Myocardial perfusion study shows a normal rest and stress images, normal study. Conclusion Lexiscan stress test was negative for ST segment deviation, thallium perfusion images are pending for final test interpretation.
--- NOTE | 2020-12-28 13:59 | Electrocardiograph Report ---
[facility], [place] Test Date: 2020-12-28 Test Time: 04:26:35 Pat Name: NAKIA CARSON Department: Room: [place] [address] Gender: F Warehouse Manager: SHY : 1950 Requested By: OLEGARIO HANEY Order Number: [id number] Reading MD: Brie Fulton Measurements Intervals Kite Rate: 72 P: 46 HI: 169 QRS: 45 QRSD: 67 T: 51 QT: 400 QTc: 437 Interpretive Statements Sinus rhythm No previous ECG available for comparison Electronically Signed On 12-28-2020 13:59:03 EDT by Brie Fulton
[2020-12-28] MEDS: PANTOPRAZOLE 40 MG TAB PO SCH (15:14)
--- NOTE | 2020-12-28 15:35 | Discharge Summary ---
Providers - Providers Date of Admission: 12/28/20 03:59 Date of discharge: 12/29/20 Attending physician: ANTHONY VALLEJO 12/28/20 Consult to Cardiac Rehabilitation [CONS] Routine Reason For Exam: Phase I 12/28/20 03:59 Consult to Physician [CONS] Stat Comment: Consulting Provider: LACHELLE HEMPHILL Physician Instructions: Reason For Exam: chest pain 12/28/20 15:31 Physical Therapy Evaluation and Treat [CONS] Routine Comment: Reason For Exam: Debility Primary care physician: TERESA MILIAN Hospitalization Condition: Critical Pertinent studies: Head CT, chest x-ray, myocardial stress test, 2D echo Hospital course: The patient is a 70-year-old woman with a history of paroxysmal atrial fibrilla tion who underwent successful ablation therapy 3 years ago and not on any anticoagulation, admitted to the hospital with complaints of chest pain. Patient also complained of intermittent dizziness and lightheadedness. On presentation to the hospital, her initial blood pressure was 153 systolic, but has remained normotensive since after her admission. She was admitted to the hospital and monitored with these serial cardiac enzymes and EKG. Myocardial stress test was unremarkable, EKG shows normal sinus rhythm with nonspecific ST and T wave changes, serial troponin levels are normal. Chest x- ray showed normal-sized cardiac silhouette and clear lungs. Head CT was unremarkable. 2D echo showed EF 65 to 70%. Patient was seen by cell assembly pinner and recommended outpatient follow-up with 30 days event monitoring for her chronic lightheadedness and dizziness. Patient also noted with a leukocytosis which likely reactive. Patient remained afebrile without any clear source of infection. Patient was then discharged home in stable condition with outpatient follow-up. Disposition: [id number] HOME UNDER HOME [facility] Final Discharge Diagnosis (Prints w/discharge instructions): Atypical chest pain, likely due to GERD. Dizziness and lightheadedness, need event monitor as outpatient. Diabetes mellitus type 2. History of GERD. Tension headache, resolved. Leukocytosis, reactiva. HLD Core Measure Documentation - Palliative Care Palliative Care/ Comfort Measures: Not Applicable - Core Measures Any of the following diagnoses?: none Exam - Physical Exam Narrative exam: GENERAL: Elderly female lying on bed appeared to be in no discomfort. HEENT: Normocephalic. Atraumatic. No conjunctival congestion or icterus. Patient has moist mucous membranes. NECK: Supple. Trachea midline. CHEST/LUNGS: Clear to auscultated bilaterally, breathing nonlabored. No wheezes crackles or rhonchi. HEART/CARDIOVASCULAR: Regular in rate and rhythm. S1 and S2 positive. ABDOMEN: Abdomen is soft, nontender. Patient has normal bowel sounds. SKIN: There is no rash. Warm and dry. NEURO: No focal motor deficit. Follows command. MUSCULOSKELETAL: No joint effusion or tenderness. EXTRIMITY: No edema, no cyanosis or clubbing. PSYCH: Cooperative. - Constitutional Vitals: Temp Pulse Resp BP Pulse Ox 97.9 F 69 14 122/69 96 12/27/20 23:18 12/28/20 14:01 12/28/20 14:01 12/28/20 14:01 12/28/20 14:01 Plan Activity: advance as tolerated, fall precautions Weight Bearing Status: Weight Bear as Tolerated Diet: low fat Special Instructions: record daily BP diary Additional Instructions: Follow-up with cell assembly pinner as outpatient for 30 days event monitoring. Come back to the hospital if your symptoms worsen Follow up with: TERESA MILIAN MD [Primary Care Provider] - 3-5 Days LACHELLE HEMPHILL MD [Staff Physician] - 7 Days Prescriptions: AtorvaSTATin [Lipitor] 40 mg PO QHS #30 tab Aspirin [Aspirin BABY CHEW TAB] 81 mg PO QDAY #30 tab.chew
[2020-12-28] MEDS: metFORMIN 500 MG TAB PO SCH (18:43)
[2020-12-29 03:17] LABS: Hematocrit 44.9 % (30.3-42.9); Mean Corpuscular HGB Conc 33 % (30-34); Mean Corpuscular Volume 85 fl (79-97); Platelet Count 225 K/mm3 (140-440); Red Blood Count 5.29 M/mm3 (3.65-5.03)
[2020-12-29 03:34] LABS: BUN/Creatinine Ratio 20; Blood Urea Nitrogen 16 mg/dL (7-17); Calcium 9.1 mg/dL (8.4-10.2); Hemolysis Index 8
[2020-12-29 05:42] LABS: Total Cells Counted 100
[2020-12-29 05:43] LABS: Anisocytosis 1+
[2020-12-29 05:44] LABS: Platelet Estimate Consistent w Auto
[2020-12-29] MEDS: metFORMIN 500 MG TAB PO SCH (08:13)
[2020-12-29] MEDS: PANTOPRAZOLE 40 MG TAB PO SCH (09:13)
[2020-12-29] MEDS ORDERED: ASPIRIN 81 MG TAB CHEW PO SCH (10:00)
[2020-12-29] MEDS ORDERED: CYANOCOBALAMIN (VIT B-12) 1000 MCG TAB PO SCH (10:00)
[2020-12-29] MEDS ORDERED: CHOLECALCIFEROL (VIT D3) 1000 UNIT (25 mcg) TAB PO SCH (10:00)
[2020-12-29 11:41] VITALS: BP 116/70
--- NOTE | 2020-12-29 14:59 | Event Note ---
Date: 12/28/20 This is the second visit after midnight Patient seen and examined Stress test is negative Patient denies any chest pain now but continue to complains of lightheadedness Continue to hold the BP medicine, follow blood pressure Wait for PT eval for discharge clearance Continue current management and plan and supportive care
== END 2020-12-29 15:35 | disposition home health service (06) ==
LOC: ED 22:58 → 4A 12-28 03:59
PROVIDERS: ADMIT Internal Medicine Geriatric Medicine; ATTEND Internal Medicine
DX: R07.89 Other chest pain (principal); E11.9 Type 2 diabetes mellitus without complications; G44.209 Tension-type headache, unspecified, not intractable; K21.9 Gastro-esophageal reflux disease without esophagitis; E78.5 Hyperlipidemia, unspecified; E78.00 Pure hypercholesterolemia, unspecified; R42 Dizziness and giddiness; D72.829 Elevated white blood cell count, unspecified; Z98.890 Other specified postprocedural states; Z79.84 Long term (current) use of oral hypoglycemic drugs; Z79.899 Other long term (current) drug therapy
CPT/HCPCS: 36415; 70450; 71045; 78452; 80048; 80053; 80061; 83036; 83880; 84484; 85025; 85610; 85730; 87040; 93005; 93017; 93306; 97162; 99291; A9270; A9502; G0378; J2785; 85007